=== PATIENT | male | born 1965 | race Caucasian/White ===

== ENCOUNTER 2021-02-28 14:48 | Outpatient (REF) | payer OTHER, SELFPAY ==
[2021-02-28 15:04] LABS: MANUAL DIFF FLAG NO
[2021-02-28 16:02] LABS: Basophils Percent Auto 0.3 % (0-2); Eosinophils Absolute Auto 0.1 X10*3/uL (0.0-0.4); Eosinophils Percent Auto 1.1 % (0-4); Hematocrit 46.3 % (42.0-52.0); Hemoglobin 15.9 g/dl (14.0-18.0); Imm Gran Abs Auto 0.02 X10*3/uL (0.00-0.03); Imm Gran Pct Auto 0.2 % (0.0-0.4); Lymphocytes Absolute Auto 2.8 X10*3/uL (1.2-4.9); Lymphocytes Percent Auto 31.1 % (20-40); Mean Corpuscular HGB Conc 34.3 g/dl (31.0-36.0); Mean Corpuscular Hemoglobin 31.2 pg (27.0-33.0); Monocytes Absolute Auto 0.7 X10*3/uL (0.1-1.2); Monocytes Percent Auto 7.5 % (2-11); Neutrophils Absolute Auto 5.4 x10*3/uL (2.0-8.3); Neutrophils Percent Auto 59.8 % (45-73); Platelet Count 289 X10*3/uL (160-400); Red Blood Count 5.09 X10*6/uL (4.60-5.80); Red Cell Distribution Width 11.6 % (11.0-16.0)
[2021-02-28 16:15] LABS: Creatinine Urine 73.75 mg/dL; Microalbum/Creatinine Ratio Ur 48.8 ug/mg cr
[2021-02-28 16:22] LABS: Anion Gap 15 (12-20); Blood Urea Nitrogen 16 mg/dL (9-16); Carbon Dioxide 26 mmol/L (22-29); Chloride 104 mmol/L (96-108); Cholesterol 143 mg/dL; Estimated Glomerular Filt Rate > 60; Glucose Random 130 mg/dL (60-115); HDL Cholesterol 43 mg/dL; LDL Cholesterol Calculated 74 mg/dl; Potassium 4.1 mmol/L (3.3-5.1); Sodium 141 mmol/L (135-145); Triglycerides 132 mg/dL
[2021-02-28 16:44] LABS: PSA,Total (Free>4and<10) 3.49 ng/mL (0.00-4.00)
[2021-03-01 08:06] LABS: Estimated Average Glucose 160 mg/dL; Hemoglobin A1c % 7.2 %
[2021-03-05 17:45] LABS: Lyme Abs Screen <0.90 index
== END 2021-02-28 14:49 | disposition home or self-care (01) ==
LOC: HO.LAB 14:48
PROVIDERS: PCP Internal Medicine; Visit Provider Internal Medicine
DX: Z00.00 Encounter for general adult medical examination without abnormal findings (principal); E11.9 Type 2 diabetes mellitus without complications; T14.8XXA Other injury of unspecified body region, initial encounter; Z12.5 Encounter for screening for malignant neoplasm of prostate
CPT/HCPCS: 36415; 80048; 80061; 82043; 83036; 84153; 85025; 86617; 86618

== ENCOUNTER 2022-10-28 12:42 | Outpatient (REF) | payer OTHER, SELFPAY ==
[2022-10-28 13:36] LABS: MANUAL DIFF FLAG NO
[2022-10-28 13:56] LABS: Basophils Percent Auto 0.5 % (0-2); Eosinophils Absolute Auto 0.1 X10*3/uL (0.0-0.4); Hematocrit 44.9 % (42.0-52.0); Hemoglobin 15.4 g/dl (14.0-18.0); Imm Gran Abs Auto 0.02 X10*3/uL (0.00-0.03); Imm Gran Pct Auto 0.3 % (0.0-0.4); Lymphocytes Absolute Auto 2.4 X10*3/uL (1.2-4.9); Lymphocytes Percent Auto 36.5 % (20-40); Mean Corpuscular HGB Conc 34.3 g/dl (31.0-36.0); Mean Corpuscular Hemoglobin 31.2 pg (27.0-33.0); Mean Corpuscular Volume 91.1 fL (80.0-98.0); Mean Platelet Volume 9.9 fL (9.4-12.4); Monocytes Absolute Auto 0.5 X10*3/uL (0.1-1.2); Monocytes Percent Auto 7.7 % (2-11); Neutrophils Absolute Auto 3.5 x10*3/uL (2.0-8.3); Platelet Count 273 X10*3/uL (160-400); Red Blood Count 4.93 X10*6/uL (4.60-5.80); Red Cell Distribution Width 11.7 % (11.0-16.0); White Blood Count 6.6 X10*3/uL (4.8-10.8)
[2022-10-28 13:58] LABS: Estimated Average Glucose 232 mg/dL; Hemoglobin A1c % 9.7 % (<6.0)
[2022-10-28 14:06] LABS: Appearance Urine Clear; Color Urine Yellow; Glucose Urine UA >=1000 mg/dL (Negative); Leukocyte Esterase Urine Negative (Negative); Nitrite Urine Negative (Negative); PH 5.5 (5.0-9.0); Specific Gravity - Urine 1.025 (1.005-1.025); UMIC TRIGGER UA YES; Urine Blood Negative (Negative); Urine Ketones Negative (Negative); Urine Protein Trace mg/dL (Neg-Trace)
[2022-10-28 14:15] LABS: Bacteria Urine None Seen (None Seen); Hyaline Casts Urine 0-2 /LPF (0-2); RBC Urine 0-2 /HPF (0-2); Squamous Epithelial Cell Urine 0-2 /HPF (0-2); WBC Urine 0-5 /HPF (0-5)
[2022-10-28 14:19] LABS: Alanine Aminotransferase 29 U/L (0-40); Albumin Level 4.6 g/dL (3.5-5.0); Alkaline Phosphatase 47 U/L (39-117); Anion Gap 11 (12-20); Aspartate Amino Transferase 19 U/L (5-37); Blood Urea Nitrogen 11 mg/dL (9-16); Calcium 9.8 mg/dL (8.4-10.2); Carbon Dioxide 29 mmol/L (22-29); Chloride 103 mmol/L (96-108); Cholesterol 153 mg/dL (<200); Estimated Glomerular Filt Rate > 60; Glucose Fasting 284 mg/dL (60-99); HDL Cholesterol 53 mg/dL (>40); LDL Cholesterol Calculated 76 mg/dL (<100); Potassium 3.8 mmol/L (3.3-5.1); Sodium 139 mmol/L (135-145); Total Protein 7.4 g/dL (6.5-8.0); Triglycerides 124 mg/dL (<150)
[2022-10-28 14:46] LABS: Creatinine Urine 103.31 mg/dL; Microalbum/Creatinine Ratio Ur 80.3 ug/mg cr (<30)
== END 2022-10-28 12:43 | disposition home or self-care (01) ==
LOC: HO.10HDL 12:42
PROVIDERS: Visit Provider Internal Medicine
DX: I25.10 Atherosclerotic heart disease of native coronary artery without angina pectoris (principal); I10 Essential (primary) hypertension; E78.00 Pure hypercholesterolemia, unspecified; E11.9 Type 2 diabetes mellitus without complications
CPT/HCPCS: 36415; 80053; 80061; 81001; 82043; 83036; 85025

== ENCOUNTER 2022-11-14 13:16 | Outpatient (REF) | payer OTHER, SELFPAY ==
--- NOTE | ~2022-11-14 | US_ITS ---
EXAMINATION: US RETROPERITONEAL COMPLETE (RENAL) CLINICAL INFORMATION: Kidney stones. COMPARISON: CT abdomen and pelvis dated 04/15/2018; KUB dated 01/21/2012. TECHNIQUE: Real-time imaging of the kidneys and bladder. FINDINGS: RIGHT KIDNEY: 11.9 x 5.7 x 6.4 cm (SAG x AP x TRV). The kidney is normal in size, contour, and echogenicity. Renal cortical thickness is normal. No calculi or focal parenchymal lesions. No hydronephrosis. LEFT KIDNEY: 12.0 x 6.2 x 5.7 cm (SAG x AP x TRV). The kidney is normal in size, contour, and echogenicity. Renal cortical thickness is normal. No calculi or focal parenchymal lesions. No hydronephrosis. BLADDER: Well distended and normal. Bilateral ureteral jets are demonstrated. Prevoid bladder volume is 184 mL. Postvoid bladder volume is 58 mL. A 3 mm posterior right bladder calculus is seen. OTHER: Prostate dimensions are 5.2 x 4.9 x 3.8 cm (volume 50.8 mL). US/US retroperitoneal comp IMPRESSION: 1. Unremarkable ultrasound appearance of the kidneys. 2. There is prostatomegaly. 3. There is a borderline increased post-void residual volume. 4. A 3 mm bladder calculus is noted.
== END 2022-11-14 13:17 | disposition home or self-care (01) ==
LOC: HO.US 13:16
PROVIDERS: PCP Internal Medicine; Visit Provider Internal Medicine
DX: N20.0 Calculus of kidney (principal)
CPT/HCPCS: 76770

== ENCOUNTER 2023-01-28 15:16 | Outpatient (REF) | payer OTHER, SELFPAY ==
[2023-01-28 15:58] LABS: Estimated Average Glucose 186 mg/dL; Hemoglobin A1c % 8.1 % (<6.0)
[2023-01-28 16:12] LABS: Anion Gap 9 (12-20); Blood Urea Nitrogen 15 mg/dL (9-16); Calcium 9.7 mg/dL (8.4-10.2); Carbon Dioxide 31 mmol/L (22-29); Chloride 104 mmol/L (96-108); Estimated Glomerular Filt Rate > 60; Glucose Random 191 mg/dL (60-115); Potassium 3.6 mmol/L (3.3-5.1); Sodium 140 mmol/L (135-145)
== END 2023-01-28 15:17 | disposition home or self-care (01) ==
LOC: HO.LAB 15:16
PROVIDERS: PCP Internal Medicine; Visit Provider Internal Medicine
DX: E11.9 Type 2 diabetes mellitus without complications (principal); I10 Essential (primary) hypertension
CPT/HCPCS: 36415; 80048; 83036

== ENCOUNTER 2023-04-14 10:46 | Outpatient (REF) | payer OTHER, SELFPAY ==
--- NOTE | ~2023-04-14 | XR_ITS ---
EXAMINATION: XR CHEST CLINICAL INFORMATION: Cough, hypertension COMPARISON: Chest x-ray on 04/28/2009 TECHNIQUE: 2 views of the chest were obtained. FINDINGS: vascularity. LUNGS: Lungs are clear. No pneumothorax is seen. BONES: Bony skeleton is intact. XR/XR chest 2V IMPRESSION: Unchanged Normal chest x-ray.
== END 2023-04-14 10:47 | disposition home or self-care (01) ==
LOC: HO.XRAY 10:46
PROVIDERS: PCP Internal Medicine; Visit Provider Internal Medicine
DX: R05.9 Cough, unspecified (principal); I10 Essential (primary) hypertension
CPT/HCPCS: 71046

== ENCOUNTER 2024-08-25 13:45 | Outpatient (AMB) | payer OTHER, SELFPAY ==
--- OUTSIDE RECORDS SUMMARY | 2020-06-13 05:00 | XMS_ITS | Continuity of Care Document ---
Author Name [facility] Organization [facility] Care Team Providers Care Airport Operations Coordinator Name Role Phone [facility] Unavailable Unavailable Immunizations Combined list of available immunizations from the Department of Defense and Veterans Affairs facilities. Immunization Series Date Given Administered By Site Reaction Lot Number CVX Code Drug Fitness Professional Status Comments Source COVID-19 (ANA LUISA), VECTOR-NR, [id number], PF, 0.5 ML 1 2020 212 complet ed JSN; [id number]; 1 SC CNTRL WSTRN [facility]
--- NOTE | 2024-08-25 13:53 | MHC.PC.OV ---
Vital Signs 08/25/24 13:59 Height 5 ft 4 in Weight 76.657 kg BMI 29.0 BP 120/90 H Respiration 14 Pulse 74 Pulse Source Pulse Oximeter Temp 97.5 F Temp Source Temporal Artery Scan Pulse Oximetry (%) 99 Oxygen Delivery Method Room Air Intake Visit Reasons: Routine Die Stamper Required: No Accompanied by: Self / Same As Patient Allergies No Known Allergies Allergy (Unverified 08/25/24 13:56) Medication List - Last Reconciled 08/27/24 by TIMMY Callejas atenolol 25 mg PO DAILY atorvastatin 40 mg PO DAILY metformin ER 1,000 mg (2 x 500 mg) PO BID HPI HPI Comments History of Present Illness Details 59-year-old male with history of coronary artery disease, hyperlipidemia, hypertension, type 2 diabetes, BPH presents to the office today for management of chronic conditions as well as to establish care. CAD- [facility] cardiovascular annually. s/p PCI with SERA LAD 13 years ago. No recent anginal chest pain. Continues on atenolol and atorvastatin Hypertension-controlled on atenolol 25 mg daily BPH/elevated PSA- Dr. Klein. Now stable, negative MRI. NO biopsy. Elevations thought to be secondary intercourse the night prior. No LUTS Diabetes- checking glucose highest is 240. On metformin 500mg ER. Has lost 30 pounds. Intermittent fasting. Concerns: None Health maintenance: Last colonoscopy 07/2016 with 10 year follow-up recommended. Dr. Hamilton ROS: General: No fevers, malaise, unintentional weight loss HEENT: No blurred vision, diplopia. No sore throat, nasal congestion, rhinorrhea, sinus pain, ear pain Cardiovascular: No chest pain, palpitations, or leg edema Respiratory: No shortness of breath, wheezing, cough MSK: No myalgia, back pain Neuro: No headaches, weakness, paresthesias Skin: No rashes or lesions EXAM: Constitutional - Awake and Alert, No apparent distress Eyes - PERRL Cardiovascular - S1S2, RRR, No edema Respiratory - Normal lung expansion, Normal respiratory effort, No respiratory distress, CTA bilaterally Extremities - no calf tenderness bilaterally, no swelling Skin - Warm/Dry Neurological - Alert & oriented x3 Psychological - Appropriate affect [facility] Medical History (Updated 08/27/24 @ 12:44 by TIMMY Callejas) BPH (benign prostatic hyperplasia) Herpes zoster CAD (coronary artery disease) HLD (hyperlipidemia) HTN (hypertension) Diabetes Surgical History (Updated 08/23/24 @ 16:12 by Nadia Rangel) History of colonoscopy (~07/17/16) Physical exam (Primary Care) Vital Signs: Last Vital Signs Temp 97.5 F 08/25/24 13:59 Pulse 74 08/25/24 13:59 Resp 14 08/25/24 13:59 BP 120/90 H 08/25/24 13:59 Pulse Ox 99 08/25/24 13:59 Oxygen Delivery Method Room Air 08/25/24 13:59 BMI result Body Mass Index 29.0 Coding Level of Care Code New Pt Level 4 (13889) Complex EM visit Add On G2211 Diagnoses HTN (hypertension) I10 CAD (coronary artery disease) I25.10 HLD (hyperlipidemia) E78.5 Diabetes E11.9 BPH (benign prostatic hyperplasia) N40.0 Assessment & Plan Assessment & Plan (1) HTN (hypertension): Code(s): I10 - Essential (primary) hypertension Category: Medical Plan: Reasonably controlled. Continue atenolol (2) CAD (coronary artery disease): Code(s): I25.10 - Atherosclerotic heart disease of [place] coronary artery without angina pectoris Category: Medical Plan: Stable, no anginal chest pain. Continue following with Cardiology, notes to be requested. Continue atenolol and statin (3) HLD (hyperlipidemia): Code(s): E78.5 - Hyperlipidemia, unspecified Category: Medical Plan: Lipid panel ordered. At goal. Continue atorvastatin (4) Diabetes: Code(s): E11.9 - Type 2 diabetes mellitus without complications Category: Medical Plan: Uncontrolled with A1c of 9.1%. Increase metformin to 1000 mg b.i.d. ER. Diabetic diet strongly encouraged. Monitor fasting glucose levels with goal less than 130. (5) BPH (benign prostatic hyperplasia): Code(s): N40.0 - Benign prostatic hyperplasia without lower urinary tract symptoms Category: Medical Plan Stable. Continue following with Urology Orders: Orders Basic Metabolic Panel 08/25/24 B02.9 - Zoster without complications, E11.9 - Type 2 diabetes mellitus without complications, E78.5 - Hyperlipidemia, unspecified, I10 - Essential (primary) hypertension, I25.10 - Atherosclerotic heart disease of [place] coronary artery without angina pectoris Hemoglobin A1c 08/25/24 B02.9 - Zoster without complications, E11.9 - Type 2 diabetes mellitus without complications, E78.5 - Hyperlipidemia, unspecified, I10 - Essential (primary) hypertension, I25.10 - Atherosclerotic heart disease of [place] coronary artery without angina pectoris Lipid Panel 08/25/24 B02.9 - Zoster without complications, E11.9 - Type 2 diabetes mellitus without complications, E78.5 - Hyperlipidemia, unspecified, I10 - Essential (primary) hypertension, I25.10 - Atherosclerotic heart disease of [place] coronary artery without angina pectoris Microalbumin, Random (w Creat) 08/25/24 B02.9 - Zoster without complications, E11.9 - Type 2 diabetes mellitus without complications, E78.5 - Hyperlipidemia, unspecified, I10 - Essential (primary) hypertension, I25.10 - Atherosclerotic heart disease of [place] coronary artery without angina pectoris Hemoglobin A1c 3 Months E11.9 - Type 2 diabetes mellitus without complications Liver Panel 08/25/24 B02.9 - Zoster without complications, E11.9 - Type 2 diabetes mellitus without complications, E78.5 - Hyperlipidemia, unspecified, I10 - Essential (primary) hypertension, I25.10 - Atherosclerotic heart disease of [place] coronary artery without angina pectoris Medications: New metformin ER 1,000 mg (2 x 500 mg) PO BID 180 tabs 1RF
[2024-08-25 13:59] VITALS: BP 120/90; PULSE 74; RESP 14; TEMP 36.4; O2SAT 99; BMI 29.0
== END 2024-08-25 14:38 | disposition home or self-care (01) ==
LOC: HO.HMCHD 13:46
PROVIDERS: PCP Internal Medicine; Visit Provider Physician Assistant
DX: I10 Essential (primary) hypertension (principal); I25.10 Atherosclerotic heart disease of native coronary artery without angina pectoris; E78.5 Hyperlipidemia, unspecified; E11.9 Type 2 diabetes mellitus without complications; N40.0 Benign prostatic hyperplasia without lower urinary tract symptoms

== ENCOUNTER 2024-08-25 14:34 | Outpatient (REF) | payer OTHER, SELFPAY ==
[2024-08-25 15:10] LABS: Estimated Average Glucose 212 mg/dL
[2024-08-25 15:23] LABS: Alanine Aminotransferase 31 U/L (0-40); Albumin Level 4.5 g/dL (3.5-5.0); Alkaline Phosphatase 42 U/L (39-117); Anion Gap 12 (12-20); Aspartate Amino Transferase 27 U/L (5-37); Bilirubin Direct 0.3 mg/dL (0.0-0.5); Bilirubin Total 0.7 mg/dL (0.0-1.0); Blood Urea Nitrogen 13 mg/dL (9-16); Calcium 9.2 mg/dL (8.4-10.2); Carbon Dioxide 28 mmol/L (22-29); Chloride 105 mmol/L (96-108); Cholesterol 139 mg/dL (<200); Estimated Glomerular Filt Rate > 60; Glucose Random 201 mg/dL (60-115); HDL Cholesterol 57 mg/dL (>40); LDL Cholesterol Calculated 65 mg/dL (<100); Potassium 3.9 mmol/L (3.3-5.1); Sodium 141 mmol/L (135-145); Total Protein 6.9 g/dL (6.5-8.0); Triglycerides 85 mg/dL (<150)
[2024-08-25 15:33] LABS: Creatinine Urine 153.34 mg/dL; Microalbum/Creatinine Ratio Ur 30.6 ug/mg cr (<30)
== END 2024-08-25 14:35 | disposition home or self-care (01) ==
LOC: HO.LAB 14:34
PROVIDERS: PCP Physician Assistant; Visit Provider Physician Assistant
DX: E11.9 Type 2 diabetes mellitus without complications (principal); I10 Essential (primary) hypertension; E78.5 Hyperlipidemia, unspecified; I25.10 Atherosclerotic heart disease of native coronary artery without angina pectoris; B02.9 Zoster without complications
CPT/HCPCS: 36415; 80048; 80061; 80076; 82043; 82570; 83036

== ENCOUNTER 2024-11-22 09:02 | Outpatient (AMB) | payer OTHER, SELFPAY ==
--- NOTE | 2024-11-22 09:09 | MHC.PC.OV ---
Vital Signs 11/22/24 09:10 11/22/24 09:31 Height 5 ft 4 in Weight 78.471 kg BMI 29.7 BP 122/90 H 110/70 Respiration 14 Pulse 69 Pulse Source Pulse Oximeter Temp 97.4 F Temp Source Temporal Artery Scan Pulse Oximetry (%) 99 Oxygen Delivery Method Room Air Intake Visit Reasons: 3 month f/u Director Stars Required: No Accompanied by: Self / Same As Patient Allergies No Known Allergies Allergy (Unverified 11/22/24 09:11) Medication List - Last Reconciled 11/22/24 by TIMMY Callejas aspirin 81 mg PO DAILY atenolol 25 mg PO DAILY atorvastatin 40 mg PO DAILY blood sugar diagnostic ([employer] Ultra Test strips) As directed metformin ER 1,000 mg (2 x 500 mg) PO BID HPI HPI Comments History of Present Illness Details 59-year-old male with history of coronary artery disease, hyperlipidemia, hypertension, type 2 diabetes, BPH presents to the office today for management of chronic conditions. CAD- [facility] cardiovascular annually. s/p PCI with SERA LAD 13 years ago. No recent anginal chest pain. Continues on atenolol and atorvastatin Hypertension-controlled on atenolol 25 mg daily. On recheck 110/70 BPH/elevated PSA- Dr. Klein. Now stable, negative MRI. No biopsy. Elevations thought to be secondary intercourse the night prior. No LUTS Diabetes- checking glucose highest is 240. On metformin 1000mg ER. Has lost 30 pounds. Intermittent fasting. Last A1c 9.0 Concerns: Medial epicondylitis. Overall tolerable, no weakness or paresthesias. No specific injury noted though does do repetitive movement at work Health maintenance: Last colonoscopy 07/2016 with 10 year follow-up recommended. Dr. Hamilton ROS: General: No fevers, malaise, unintentional weight loss HEENT: No blurred vision, diplopia. No sore throat, nasal congestion, rhinorrhea, sinus pain, ear pain Cardiovascular: No chest pain, palpitations, or leg edema Respiratory: No shortness of breath, wheezing, cough MSK: No myalgia, back pain Neuro: No headaches, weakness, paresthesias Skin: No rashes or lesions EXAM: Constitutional - Awake and Alert, No apparent distress Eyes - PERRL Cardiovascular - S1S2, RRR, No edema Respiratory - Normal lung expansion, Normal respiratory effort, No respiratory distress, CTA bilaterally Extremities - no calf tenderness bilaterally, no swelling Skin - Warm/Dry Neurological - Alert & oriented x3 Psychological - Appropriate affect [facility] Medical History (Updated 11/22/24 @ 09:28 by TIMMY Callejas) BPH (benign prostatic hyperplasia) Herpes zoster CAD (coronary artery disease) HLD (hyperlipidemia) HTN (hypertension) Diabetes Surgical History (Updated 08/23/24 @ 16:12 by Nadia Rangel) History of colonoscopy (~07/17/16) Physical exam (Primary Care) Vital Signs: Last Vital Signs Temp 97.4 F 11/22/24 09:10 Pulse 69 11/22/24 09:10 Resp 14 11/22/24 09:10 BP 122/90 H 11/22/24 09:10 Pulse Ox 99 11/22/24 09:10 Oxygen Delivery Method Room Air 11/22/24 09:10 BMI result Body Mass Index 29.7 Coding Level of Care Code Est Pt Level 4 (18917) Complex EM visit Add On G2211 Diagnoses HTN (hypertension) I10 CAD (coronary artery disease) I25.10 HLD (hyperlipidemia) E78.5 Diabetes E11.9 BPH (benign prostatic hyperplasia) N40.0 Medial epicondylitis, right elbow M77.01 Assessment & Plan Assessment & Plan (1) HTN (hypertension): Code(s): I10 - Essential (primary) hypertension Category: Medical Plan: Reasonably controlled. Continue atenolol (2) CAD (coronary artery disease): Code(s): I25.10 - Atherosclerotic heart disease of [place] coronary artery without angina pectoris Category: Medical Plan: Stable, no anginal chest pain. Continue following with Cardiology, notes to be requested. Continue atenolol, asa, and statin (3) HLD (hyperlipidemia): Code(s): E78.5 - Hyperlipidemia, unspecified Category: Medical Plan: Lipid panel ordered. At goal. Continue atorvastatin (4) Diabetes: Code(s): E11.9 - Type 2 diabetes mellitus without complications Category: Medical Plan: Uncontrolled with A1c of 9.0%. Increase metformin to 1000 mg b.i.d. ER. Diabetic diet strongly encouraged. Monitor fasting glucose levels with goal less than 130. (5) BPH (benign prostatic hyperplasia): Code(s): N40.0 - Benign prostatic hyperplasia without lower urinary tract symptoms Category: Medical Plan: Stable. Continue following with Urology. No LUTS (6) Medial epicondylitis, right elbow: Code(s): M77.01 - Medial epicondylitis, right elbow Category: Medical Plan: Can take ibuprofen or Tylenol as needed. Recommend ice. He is given exercises to perform at home Plan Follow-up in the office in 3 months. Labs as below for today as well as several days prior to next appointment Orders: Orders Lipid Panel Today E11.9 - Type 2 diabetes mellitus without complications, E78.5 - Hyperlipidemia, unspecified, I10 - Essential (primary) hypertension, I25.10 - Atherosclerotic heart disease of [place] coronary artery without angina pectoris Hemoglobin A1c Today E11.9 - Type 2 diabetes mellitus without complications, E78.5 - Hyperlipidemia, unspecified, I10 - Essential (primary) hypertension, I25.10 - Atherosclerotic heart disease of [place] coronary artery without angina pectoris Liver Panel Today E11.9 - Type 2 diabetes mellitus without complications, E78.5 - Hyperlipidemia, unspecified, I10 - Essential (primary) hypertension, I25.10 - Atherosclerotic heart disease of [place] coronary artery without angina pectoris Hemoglobin A1c 3 Months E11.9 - Type 2 diabetes mellitus without complications Medications: New aspirin 81 mg PO DAILY 90 tabs 0RF
[2024-11-22 09:10] VITALS: BP 122/90; PULSE 69; RESP 14; TEMP 36.3; O2SAT 99; BMI 29.7
[2024-11-22 09:31] VITALS: BP 110/70
--- OUTSIDE RECORDS SUMMARY | 2024-11-22 10:34 | XMS_ITS | Patient Health Record ---
Author Organization [facility] Address [address] [place] [address] Care Team Providers Care Word Processor Name Role Phone Jasper (RETIRED) Padilla BROWN Primary Care Provide r Tay Manuel Jr Unavailable [phone] Reason For Referral No Information Medications Medication SIG (Take, Route, Frequency, Duration) Notes Start Date End Date Status Colyte with Flavor Packs 240 GM As directed Orally Over the specified time. 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.82) Active confirmed Problem 39670399 Preoperative examination (Z01.818) Active confirmed Plan Of Treatment Future Test Test Name Order Date COLONOSCOPY 12/29/2015 Insurance Providers Payer Name Payer Address Payer Phone Subscriber Number Group Number Insured Name Patient Relationship to Insured Coverage Start Date Coverage End Date [employer] [address] [place] [address] [id number] GALE ARAUJO Self - patient is the insured Medical (General) History Medical History History ICD Code diabetes mellitus, diet controlled coronary artery disease with history of stent placement 5 years ago Surgical History Surgery Date(Month/Year) stent placement knee surgery-right and left ACL and PCL vasectomy
--- OUTSIDE RECORDS SUMMARY | 2024-11-22 10:34 | XMS_ITS | Clinical Summary ---
Author Organization [facility] Address [address] [place] [address] Care Team Providers Care Spa Supervisor Name Role Phone No, Pcp Primary Care Provider Unavailabl e Social History Tobacco Use Types Packs/Day Years Used Date Smoking Tobacco: Never Assessed Sex and Gender Information Value Date Recorded Sex Assigned at Not on file Legal Sex Male 7:57 AM MST Gender Identity Not on file Sexual Orientation Not on file Plan of Treatment Health Maintenance Due Date Last Done Comments CT Colonography 1966 Cologuard 1966 Colonoscopy 1966 Colorectal Cancer Screening 1966 FOBT/FIT 1966 Hepatitis C Screening 1966 Sigmoidoscopy 1966 PHQ-9 Depression Screen 1978 Annual Preventive Exam 1984 DESHAWN-7 Anxiety Screen 1984 DTaP,Tdap,and Td Vaccines (1 - Tdap) 1985 Pneumococcal Vaccine: 50+ Years (1 of 1 - PCV) 017 Zoster Vaccines (1 of 2) 2016 COVID-19 Vaccine (1 - 2023- season) 2024 Influenza Vaccine (#1) 2024 RSV Vaccine (SCDM) (1 - 1-dose 75+ series) 2041 Insurance [employer] Care Teams Spa Supervisor Relationship Specialty Start Date End Date No, Pcp PCP - General 03/22/22
== END 2024-11-22 09:35 | disposition home or self-care (01) ==
LOC: HO.HMCHD 09:03
PROVIDERS: PCP Physician Assistant; Visit Provider Physician Assistant
DX: I10 Essential (primary) hypertension (principal); I25.10 Atherosclerotic heart disease of native coronary artery without angina pectoris; E78.5 Hyperlipidemia, unspecified; E11.9 Type 2 diabetes mellitus without complications; N40.0 Benign prostatic hyperplasia without lower urinary tract symptoms; M77.01 Medial epicondylitis, right elbow

== ENCOUNTER 2024-11-22 10:03 | Outpatient (REF) | payer OTHER, SELFPAY ==
[2024-11-22 10:56] LABS: Hemoglobin A1C 243.5402 umol/L; Total Hemoglobin (HGBA1C) 3782.7070 umol/L
[2024-11-22 11:04] LABS: Alanine Aminotransferase 57 U/L (0-40); Albumin Level 4.9 g/dL (3.5-5.0); Alkaline Phosphatase 52 U/L (39-117); Aspartate Amino Transferase 33 U/L (5-37); Cholesterol 121 mg/dL (<200); HDL Cholesterol 52 mg/dL (>40); Total Protein 7.4 g/dL (6.5-8.0); Triglycerides 84 mg/dL (<150)
== END 2024-11-22 10:04 | disposition home or self-care (01) ==
LOC: HO.10HDL 10:03
PROVIDERS: Visit Provider Physician Assistant
DX: I10 Essential (primary) hypertension (principal); I25.10 Atherosclerotic heart disease of native coronary artery without angina pectoris; E78.5 Hyperlipidemia, unspecified; E11.9 Type 2 diabetes mellitus without complications
CPT/HCPCS: 36415; 80061; 80076; 83036

== ENCOUNTER 2025-02-22 07:55 | Outpatient (AMB) | payer OTHER, SELFPAY ==
--- NOTE | 2025-02-22 08:02 | MHC.PC.OV ---
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: Present Accompanied by: Self / Same As Patient Allergies No Known Allergies Allergy (Unverified 02/22/25 08:03) Medication List - Last Reconciled 02/22/25 by TIMMY Callejas aspirin 81 mg PO DAILY atenolol 25 mg PO DAILY 90 days atorvastatin 40 mg PO DAILY 90 days blood sugar diagnostic (NovaSysuch Ultra Test strips) As directed glipizide ER 5 mg PO DAILY metformin ER 1,000 mg (2 x 500 mg) PO BID Tobacco use date assessed: 02/22/25 Dental Screening Dental Screen Date: 02/22/25 Did you have a dental visit in the last 12 months?: Yes Did you have a dental problem in the last 6 months where you did not have access to dental care?: No Was dental information given to patient?: Patient has dentist HPI HPI Comments History of Present Illness Details 59-year-old male with history of coronary artery disease, hyperlipidemia, hypertension, type 2 diabetes, BPH presents to the office today for management of chronic conditions. CAD- [facility] cardiovascular annually. s/p PCI with SERA LAD 13 years ago. No recent anginal chest pain. Continues on atenolol,asa, and atorvastatin Hypertension-controlled on atenolol 25 mg daily. On recheck 118/72 BPH/elevated PSA- Dr. Klein. Now stable, negative MRI. No biopsy. Elevations thought to be secondary intercourse the night prior. No LUTS Diabetes- On metformin 1000mg ER. Has lost 30 pounds. Intermittent fasting, but has not compliant in the last few weeks. Last A1c 8.0. Glipizide added at last visit. Lowest glucose 77, asymptomic. Fasting glucose typically 110-112. Due for eye exam. Concerns: L sided low back pain. ?Pulled a muscle. Positional. Not taking anything. Health maintenance: Last colonoscopy 07/2016 with 10 year follow-up recommended. Dr. Hamilton ROS: General: No fevers, malaise, unintentional weight loss HEENT: No blurred vision, diplopia. No sore throat, nasal congestion, rhinorrhea, sinus pain, ear pain Cardiovascular: No chest pain, palpitations, or leg edema Respiratory: No shortness of breath, wheezing, cough MSK: No myalgia, back pain Neuro: No headaches, weakness, paresthesias Skin: No rashes or lesions EXAM: Constitutional - Awake and Alert, No apparent distress Eyes - PERRL Cardiovascular - S1S2, RRR, No edema Respiratory - Normal lung expansion, Normal respiratory effort, No respiratory distress, CTA bilaterally Extremities - no calf tenderness bilaterally, no swelling Skin - Warm/Dry Neurological - Alert & oriented x3 Psychological - Appropriate affect [facility] Medical History (Updated 02/22/25 @ 08:26 by TIMMY Callejas) BPH (benign prostatic hyperplasia) Herpes zoster CAD (coronary artery disease) HLD (hyperlipidemia) HTN (hypertension) Diabetes Surgical History (Updated 08/23/24 @ 16:12 by Nadia Rangel) History of colonoscopy (~07/17/16) Social History Housing: House Patient Tobacco Use Status: Former Tobacco user (Quite in 1999) e-Cigarette/Vaping Use: Never Used service: Yes ([employer]) Current occupational status: employed Current occupation: [employer] Cognitive needs: No Hearing needs: No Vision needs: No Questionnaire PHQ-9 Over the last 2 weeks, how often have you been bothered by any of the following problems? 1. Little interest or pleasure in doing things: not at all 2. Feeling down, depressed, or hopeless: not at all 3. Trouble falling or staying asleep, or sleeping too much: not at all 4. Feeling tired or having little energy: not at all 5. Poor appetite or overeating: not at all 6. Feeling bad about yourself - or that you are a failure or have let yourself or your family down: not at all 7. Trouble concentrating on things, such as reading the newspaper or watching television: not at all 8. Moving or speaking so slowly that other people could have noticed. Or the opposite - being so fidgety or restless that you have been moving around a lot more than usual: not at all 9. Thoughts that you would be better off or of hurting yourself in some way: not at all Total score: 0 Depression Screening Interpretation: Negative Depression Screening Done: Yes 04207 - PHQ-9 Billing: Yes Source: Developed by Drs. Juan C Jin, Nathaly Nieto, Chris Ott and colleagues, with an educational chely from [employer]. AUDIT C Alcohol Use Questionnaire (AUDIT-C) 2. How many drinks containing alcohol do you have on a typical day when you are drinking?: 1 or 2 3. How often do you have six or more drinks on one occasion?: Less than monthly Total Score: 1 DESHAWN-7 AMB Questionnaire DESHAWN-7 Feeling nervous, anxious, or on edge: 0 = Not at all Not being able to stop or control worryin = Not at all Worrying too much about different things: 0 = Not at all Trouble relaxin = Not at all Being so restless that it is hard to sit still: 0 = Not at all Becoming easily annoyed or irritable: 0 = Not at all Feeling afraid as if something awful might happen: 0 = Not at all Total DESHAWN-7 score (0-4 normal; 5-9 mild; 10-14 moderate; 15-21 severe): 0 Source: Developed by Drs. Juan C iJn, Nathaly Nieto, Chris Ott and colleagues, with an educational chely from [employer]. DESHAWN-7 Assessment Billing DESHAWN-7 Assessment Tool: DESHAWN-7 Assessment 72193 Physical exam (Primary Care) Depression Screening Interpretation: Negative Coding Level of Care Code Est Pt Level 4 (61799) Add On Problem Visit Only Diagnoses HTN (hypertension) I10 CAD (coronary artery disease) I25.10 HLD (hyperlipidemia) E78.5 Diabetes E11.9 Low back pain M54.50 Additional Codes DESHAWN-7 Assessment Billing - DESHAWN-7 Assessment Tool: DESHAWN-7 Assessment 59274 ([id number]) PHQ-9 - 07582 - PHQ-9 Billing: Yes ([id number]) Assessment & Plan Assessment & Plan (1) HTN (hypertension): Code(s): I10 - Essential (primary) hypertension Category: Medical Plan: Reasonably controlled. Continue atenolol (2) CAD (coronary artery disease): Code(s): I25.10 - Atherosclerotic heart disease of [place] coronary artery without angina pectoris Category: Medical Plan: Stable, no anginal chest pain. Continue following with Cardiology, notes to be requested. Continue atenolol, asa, and statin (3) HLD (hyperlipidemia): Code(s): E78.5 - Hyperlipidemia, unspecified Category: Medical Plan: Lipid panel ordered. At goal. Continue atorvastatin. Recheck lipid panel (4) Diabetes: Code(s): E11.9 - Type 2 diabetes mellitus without complications Category: Medical Plan: Previously uncontrolled, recheck A1c today. Increase metformin to 1000 mg b.i.d. ER and glipizide 5mg ER. Diabetic diet strongly encouraged. Monitor fasting glucose levels with goal less than 130. (5) Low back pain: Code(s): M54.50 - Low back pain, unspecified Category: Medical Plan: Ibuprofen or tylenol prn. Declines muscles relaxer. Topicals, stretches. Ice or heat Plan Follow-up in the office in 3 months. Labs as below for today as well as several days prior to next appointment Orders: Orders Lipid Panel 3 Months E11.9 - Type 2 diabetes mellitus without complications, E78.5 - Hyperlipidemia, unspecified, I10 - Essential (primary) hypertension, I25.10 - Atherosclerotic heart disease of [place] coronary artery without angina pectoris Prostate Specific Antigen 3 Months E11.9 - Type 2 diabetes mellitus without complications, E78.5 - Hyperlipidemia, unspecified, I10 - Essential (primary) hypertension, I25.10 - Atherosclerotic heart disease of [place] coronary artery without angina pectoris Liver Panel 3 Months E11.9 - Type 2 diabetes mellitus without complications, E78.5 - Hyperlipidemia, unspecified, I10 - Essential (primary) hypertension, I25.10 - Atherosclerotic heart disease of [place] coronary artery without angina pectoris Microalbumin, Random (w Creat) 3 Months E11.9 - Type 2 diabetes mellitus without complications, E78.5 - Hyperlipidemia, unspecified, I10 - Essential (primary) hypertension, I25.10 - Atherosclerotic heart disease of [place] coronary artery without angina pectoris Basic Metabolic Panel 3 Months E11.9 - Type 2 diabetes mellitus without complications, E78.5 - Hyperlipidemia, unspecified, I10 - Essential (primary) hypertension, I25.10 - Atherosclerotic heart disease of [place] coronary artery without angina pectoris Hemoglobin A1c 3 Months E11.9 - Type 2 diabetes mellitus without complications, E78.5 - Hyperlipidemia, unspecified, I10 - Essential (primary) hypertension, I25.10 - Atherosclerotic heart disease of [place] coronary artery without angina pectoris Medications: Refilled glipizide ER 5 mg PO DAILY 90 tabs 1RF
--- OUTSIDE RECORDS SUMMARY | 2025-02-22 08:02 | XMS_ITS | Patient Health Record ---
Author Organization [facility] Address [address] [place] [address] Care Team Providers Care Marketing Effectiveness Manager Name Role Phone Jasper (RETIRED) Padilla BROWN Primary Care Provide Tay Cabrera Jr Unavailable [phone] Reason For Referral No Information Medications Medication SIG (Take, Route, Frequency, Duration) Notes Start Date End Date Status Colyte with Flavor Packs 240 GM Solution Reconstituted As directed Orally Over the specified time.; Duration: 1 day(s) 12/29/2015 Active Aspir-81 Active Atorvastatin Calcium Active Atenolol Active Social History Social History Additional Details Category Social Info Options Details Miscellaneous: Marital status: Occupation: manual machinist Problems Problem Type SNOMED Code ICD Code Onset Dates Problem Status W/U Status Risk Notes Problem Colon cancer screening (730587303) Colon cancer screening (Z12.11) Active confirmed Problem Long-term current use of antiplatelet drug (285307452347073 ) nursing home (current) use of aspirin (Z79.82) Active confirmed Problem Pre-procedure evaluation check (850075396) Preoperative examination (Z01.818) Active confirmed Plan Of Treatment Future Test Test Name Order Date COLONOSCOPY 12/29/2015 Insurance Providers Payer Name Payer Address Payer Phone Subscriber Number Group Number Insured Name Patient Relationship to Insured Coverage Start Date Coverage End Date [employer] [address] [place] [id number] [phone] [id number] GALE ARAUJO Self - patient is the insured Medical (General) History Medical History History ICD Code diabetes mellitus, diet controlled coronary artery disease with history of stent placement 5 years ago Surgical History Surgery Date(Month/Year) stent placement knee surgery-right and left ACL and PCL vasectomy
--- OUTSIDE RECORDS SUMMARY | 2025-02-22 08:02 | XMS_ITS | Clinical Summary ---
Author Organization [facility] Address [address] [place] [address] Care Team Providers Care Dictaphone Operator Name Role Phone No, Pcp Primary Care [...] 1966 Hepatitis C Screening 1966 Sigmoidoscopy 1966 MMR Vaccines (1 of 1 - Standard series) 1967 PHQ-9 Depression Screen 1978 Annual Preventive Exam 1984 DESHAWN-7 Anxiety Screen 1984 DTaP,Tdap,and Td Vaccines (1 - Tdap) 1985 Hepatitis B Vaccines (1 of 3 - 19+ 3-dose series) 03/10 Pneumococcal Vaccine: 50+ Years (1 of 1 - PCV) 017 Zoster Vaccines (1 of 2) 2016 COVID-19 Vaccine ( - 2023- season) 2024 Influenza Vaccine (#1) 2024 RSV Vaccine (SCDM) (1 - 1-dose 75+ series) 2041 Insurance [employer] Care Teams Dictaphone Operator Relationship Specialty Start Date End Date No, Pcp PCP - General 03/22/22
[2025-02-22 08:09] VITALS: BP 118/72; PULSE 78; TEMP 36.7; O2SAT 98; BMI 29.8
== END 2025-02-22 08:30 | disposition home or self-care (01) ==
LOC: HO.HMCHD 07:55
PROVIDERS: PCP Physician Assistant; Visit Provider Physician Assistant
DX: I10 Essential (primary) hypertension (principal); I25.10 Atherosclerotic heart disease of native coronary artery without angina pectoris; E78.5 Hyperlipidemia, unspecified; E11.9 Type 2 diabetes mellitus without complications; M54.50 Low back pain, unspecified

== ENCOUNTER → 2025-02-22 07:55 | Outpatient (BNVA) | payer OTHER, SELFPAY | PROVIDERS: PCP Physician Assistant; Visit Provider Physician Assistant | DX: I10 Essential (primary) hypertension (principal); I25.10 Atherosclerotic heart disease of native coronary artery without angina pectoris; E78.5 Hyperlipidemia, unspecified; E11.9 Type 2 diabetes mellitus without complications; M54.50 Low back pain, unspecified; N40.0 Benign prostatic hyperplasia without lower urinary tract symptoms; Z79.82 Long term (current) use of aspirin; Z79.84 Long term (current) use of oral hypoglycemic drugs; Z79.899 Other long term (current) drug therapy; Z13.31 Encounter for screening for depression | CPT/HCPCS: 96127 ==

== ENCOUNTER 2025-02-22 08:35 | Outpatient (REF) | payer OTHER, SELFPAY ==
[2025-02-22 11:44] LABS: Hemoglobin A1C 151.7019 umol/L
[2025-02-22 11:57] LABS: Anion Gap 12 (12-20); Blood Urea Nitrogen 15 mg/dL (9-16); Calcium 9.5 mg/dL (8.4-10.2); Carbon Dioxide 29 mmol/L (22-29); Chloride 102 mmol/L (96-108); Estimated Glomerular Filt Rate > 60; Potassium 4.4 mmol/L (3.3-5.1); Sodium 139 mmol/L (135-145)
[2025-02-22 11:58] LABS: Prostate Specific Antigen 4.63 ng/mL (<0.05-4.0)
== END 2025-02-22 08:36 | disposition home or self-care (01) ==
LOC: HO.10HDL 08:35
PROVIDERS: Visit Provider Physician Assistant
DX: E11.9 Type 2 diabetes mellitus without complications (principal); E78.5 Hyperlipidemia, unspecified; I10 Essential (primary) hypertension; Z12.5 Encounter for screening for malignant neoplasm of prostate
CPT/HCPCS: 36415; 80048; 83036; 84153